=== PATIENT | female | born 1980 | race Caucasian/White ===

== ENCOUNTER 2017-11-17 23:47 | Inpatient (IN) | payer OTHER ==
[~2017-11-17] VITALS: Ht 175.3 cm; Wt 108.0 kg
--- NOTE | ~2017-11-17 | HP ---
PATIENT: AVINASH COLEY MEDICAL RECORD: [id number] ACCOUNT: [id number] LOCATION:[facility] : 81 ADMISSION DATE: 11/18/17 HISTORY AND PHYSICAL EXAMINATION HISTORY OF PRESENT ILLNESS: A 37-year-old female presented to the Emergency Room last night with right upper quadrant abdominal pain, persistent nausea and vomiting, increasing jaundice in her eyes for the past week. Recurrent right upper quadrant abdominal pain. Had an abdominal ultrasound, which showed sludge in the gallbladder, but no acute findings, had been scheduled for an outpatient PIPIDA scan, had not been able to complete this test prior to this presentation. PAST MEDICAL HISTORY: Significant for tonsillectomy. ALLERGIES: REPORTED SHELLFISH. CURRENT MEDICATIONS: Claritin for allergies. REVIEW OF SYSTEMS: GENERAL: Loss of appetite with acute nausea and vomiting. No known change in weight. HEENT: No cephalgia, visual changes, tinnitus, epistaxis, or dysphagia. CARDIOVASCULAR: Denies chest pain. Denies palpitations. PULMONARY: Denies hemoptysis. Denies night sweats. GASTROINTESTINAL: Acute nausea and vomiting as noted above. Mild jaundice reported. GENITOURINARY: Denies dysuria. MUSCULOSKELETAL: No acute changes. ENDOCRINE: Denies polyuria, polydipsia, or polyphagia. PHYSICAL EXAMINATION: VITAL SIGNS: Temp 98.7, blood pressure is 146/67, heart rate 77, respirations 20, O2 sats 99% room air. GENERAL: Alert, oriented, mild distress secondary to epigastric right upper quadrant abdominal pain. HEENT: Normocephalic, atraumatic. Eyes: Pupils are equally round and reactive. Ears: Canals patent. TMs are intact. Nose: Nares patent without drainage. Throat: No erythema, no exudates. NECK: Supple. No lymphadenopathy, no JVD. HEART: Regular rate and rhythm. No S3, S4. No rub. LUNGS: Clear to auscultation bilaterally. Breathing is nonlabored. ABDOMEN: Soft, epigastric right upper quadrant tenderness. Bowel sounds positive. EXTREMITIES: Present times 4. Trace edema. NEUROLOGIC: Intact. SKIN: Warm and dry. No rash. IMAGING: CT of the abdomen and pelvis shows pancreatic stranding consistent with acute pancreatitis, also shows a distended gallbladder. LABORATORY DATA: CBC: White count 10.6, hemoglobin 13.2, hematocrit 40.5, platelets 282. Urinalysis: Dark yellow, hazy, negative ketones, 2+ bilirubin, trace leukocyte esterase. Chemistry shows a sodium of 141, potassium 4.0, chloride 106, bicarbonate 28.8, BUN 12, creatinine 0.9, glucose 150, total HISTORY AND PHYSICAL [id number] BRIJESH,AVINASH bilirubin is 8.0. AST is 147, ALT is 306, alk phos 184. Troponin less than 0.017. Albumin 3.4, amylase 2853, lipase 14,527. ASSESSMENT AND PLAN: Acute pancreatitis, likely caused by a sludge/gallstones, cholelithiasis. The patient is admitted. GI consulted. General surgery, Dr. Deleon consulted. The patient at some point will need cholecystectomy, likely with intraoperative ERCP. IV hydration, pain management, antiemetics, supportive care. We will monitor electrolytes. Placed on electrolyte protocol. 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
--- NOTE | ~2017-11-17 | OP ---
PATIENT NAME: AVINASH COLEY MEDICAL RECORD: [id number] :82 LOCATION:D[facility] ADMISSION DATE:11/18/17 SURGEON: DYAN HALLMAN MD DATE OF OPERATION: 11/20/2017 PREOPERATIVE DIAGNOSES: 1. Gallstone pancreatitis. 2. Elevated liver function tests POSTOPERATIVE DIAGNOSES: 1. Gallstone pancreatitis with secondary acute cholecystitis. 2. Hepatomegaly. 3. Elevated liver function tests. 4. Huge gallbladder. PROCEDURE: 1. Laparoscopic cholecystectomy. 2. Intraoperative cholangiography without immediate surgeon interpretation. 3. A 14-gauge core needle liver biopsies. SURGEON: Dyan Hallman MD GRINDER CHIPPER: None. BLOOD LOSS: Less than 25 cc. ANESTHESIA: General. COMPLICATIONS: None. The risks, possible complications, and alternatives to the procedure were discussed with the patient. She elects to proceed. The discussion specifically included, but was not limited to, bleeding requiring an emergency reoperation, infection, intestinal injury as well as common bile duct injury. OPERATIVE COURSE: The patient was conveyed to the operating room electively on 11/20/2017. General anesthesia was induced by the anesthesia staff. The abdomen was sterilely prepped and draped. A small skin laura was accomplished in the left upper quadrant. A Veress needle was inserted into the peritoneal cavity. CO2 insufflation was begun. Once a sufficient pneumoperitoneum had been achieved, a 5-mm trocar was inserted through an incision in the right upper quadrant. Under direct internal vision utilizing a television camera, a 5-mm trocar was inserted in the left upper quadrant and another 5-mm trocar was inserted through an incision far laterally in the right upper quadrant. Also, a 12-mm trocar was inserted through an incision at the umbilicus. During insertion of the Veress needle and all trocars, there appeared to had been no injury to the bowels, any intraperitoneal or retroperitoneal structures. An abdominal survey was undertaken. Under laparoscopic guidance, I percutaneously accessed the right upper quadrant utilizing a 14-gauge core needle liver biopsy device. Cores were obtained over the convexity of the liver. The biopsy sites were made hemostatic with electrocautery. I then advanced a cholangiogram trocar. I punctured the inflamed gallbladder. I aspirated bile. I then injected dye. Under real time fluoroscopy, an intraoperative cholangiogram was performed. The images are sent to the OPERATIVE REPORT [id number] AVINASH COLEY radiologist for interpretation. I aspirated bile and removed the cholangiogram trocar. The gallbladder was grasped and retracted cephalad. The infundibulum was visualized after taking down adhesions sharply. Blunt dissection was begun in the triangle of Calot. Two cystic arteries and one cystic duct were identified. These were clipped multiply and divided between clips. Due to an enlarged cystic duct, I had to change out the left upper quadrant trocar from a 5-mm trocar to a 12 mm trocar, so that larger clips could be applied. The gallbladder was then excised from its bed in the liver. It was placed within an Endobag retrieval device and was withdrawn through the umbilical fascial defect. A 12-mm trocar was placed and the abdomen reinsufflated. I irrigated and aspirated in the right upper quadrant. There was no bleeding even at low pressure of 8. David was added to the gallbladder fossa for additional hemostasis. Abdomen was desufflated. The Hubert-Galileo suture closure device and 0 Vicryl sutures were used to close the fascia at the umbilicus. All the trocars were removed and the abdomen desufflated. The skin at the umbilicus was closed with interrupted 4-0 Vicryl Rapide sutures. The other skin incisions were closed with interrupted intracuticular 3-0 Vicryls. Benzoin and Steri-Strips were applied. The patient was then extubated and conveyed to the post-anesthesia care unit where she was in stable condition. From my standpoint, she can be dismissed home in the morning on narcotic analgesia. I would like to see her in my office in 2-3 weeks. She can be dismissed home prior to being seen by a surgeon in the morning if she is doing well. 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
[2017-11-18 01:10] LABS: HEMATOCRIT 40.5 % (36.0-48.0); HEMOGLOBIN 13.2 g/dL (12-16); LYMPHOCYTES 6.9 % (15-50); MCH 26.8 pg (26.0-34.0); MCHC 32.6 g/dL (31.0-37.0); MCV 82.2 fL (80.0-100.0); MEAN PLATELET VOLUME 10.8 fL (7.4-10.4); NEUTROPHILS 85.2 % (40-80); PLATELET COUNT 282 10x3/uL (130-400); RBC 4.93 10x6/uL (4.00-5.40); RDW 17.4 % (11.5-14.5); WBC 10.6 10x3/uL (4.8-10.8)
[2017-11-18 01:21] LABS: ALBUMIN 3.4 g/dL (3.4-5.0); ALKALINE PHOSPHATASE 184 U/L (46-116); ALT (SGPT) 306 U/L (10-68); CALC OSMOLALITY 283 mosm/kg (275-300); CARBON DIOXIDE 28.8 mmol/L (21.0-32.0); CHLORIDE - SERUM 106 mmol/L (98-107); CREATININE - SERUM 0.9 mg/dL (0.6-1.3); GLUCOSE 150 mg/dL (74-106); PROTEIN - SERUM 7.7 g/dL (6.4-8.2); SODIUM 141 mmol/L (136-145); UREA NITROGEN 12 mg/dL (7-18); eGFR NON AFRICAN AMERICAN 75 mL/min (90-120)
[2017-11-18 01:24] LABS: HCG URINE NEGATIVE (NEGATIVE)
[2017-11-18 01:28] LABS: TROPONIN-I < 0.017 ng/mL (0.000-0.060)
[2017-11-18 01:35] LABS: AMYLASE - SERUM 2853 U/L (25-115); LIPASE 14527 U/L (73-393)
[2017-11-18 01:44] LABS: APPEARANCE HAZY (CLEAR); COLOR DK YELLOW (YELLOW); NITRITE NEGATIVE (NEGATIVE); PROTEIN NEGATIVE (NEGATIVE); SPECIFIC GRAVITY 1.025 (1.005-1.020)
[2017-11-18 01:45] LABS: BACTERIA FEW /hpf (NONE SEEN); BILIRUBIN 2+ (NEGATIVE); EPITHELIAL CELLS 0-5 /hpf (0-5); GLUCOSE NEGATIVE (NEGATIVE); KETONE NEGATIVE (NEGATIVE); RED CELLS - URINE 0-5 /hpf (0-5); UROBILINOGEN NORMAL (NORMAL); WHITE CELLS - URINE 0-5 /hpf (0-5)
[2017-11-18 09:09] VITALS: BP 146/71
[2017-11-18 17:07] VITALS: BP 139/65
[2017-11-18 20:00] VITALS: BP 140/68
[2017-11-19] VITALS (7 sets, daily range): BP systolic 104–153; BP diastolic 61–79; Ht 175.3 cm; Wt 108.0 kg
[2017-11-19 04:31] LABS: BASOPHILS 0.1 % (0-2); EOSINOPHILS 2.1 % (0-7); HEMATOCRIT 36.2 % (36.0-48.0); HEMOGLOBIN 11.8 g/dL (12-16); IMMATURE GRANULOCYTES 0.3 % (0-5); LYMPHOCYTES 9.9 % (15-50); MCH 26.9 pg (26.0-34.0); MCHC 32.6 g/dL (31.0-37.0); MCV 82.5 fL (80.0-100.0); MONOCYTES 8.1 % (2-11); NEUTROPHILS 79.5 % (40-80); PLATELET COUNT 276 10x3/uL (130-400); RBC 4.39 10x6/uL (4.00-5.40); RDW 16.8 % (11.5-14.5)
[2017-11-19 04:40] LABS: WBC 13.7 10x3/uL (4.8-10.8)
[2017-11-19 04:53] LABS: ALKALINE PHOSPHATASE 155 U/L (46-116); CARBON DIOXIDE 29.3 mmol/L (21.0-32.0); CHLORIDE - SERUM 104 mmol/L (98-107); CREATININE - SERUM 0.7 mg/dL (0.6-1.3); GLUCOSE 117 mg/dL (74-106); PHOSPHOROUS 3.1 mg/dL (2.5-4.9); POTASSIUM - SERUM 3.5 mmol/L (3.5-5.1); PROTEIN - SERUM 6.2 g/dL (6.4-8.2); SODIUM 140 mmol/L (136-145); eGFR NON AFRICAN AMERICAN > 90 mL/min (90-120)
[2017-11-19 04:55] LABS: ALBUMIN 2.5 g/dL (3.4-5.0); ALT (SGPT) 186 U/L (10-68); AMYLASE - SERUM 503 U/L (25-115); CALC OSMOLALITY 277 mosm/kg (275-300); LIPASE 2271 U/L (73-393); UREA NITROGEN 7 mg/dL (7-18)
[2017-11-20] VITALS: BP 148/68
[2017-11-20 04:00] VITALS: BP 146/71
[2017-11-20 04:07] LABS: BASOPHILS 0.2 % (0-2); EOSINOPHILS 3.8 % (0-7); HEMATOCRIT 33.3 % (36.0-48.0); HEMOGLOBIN 10.8 g/dL (12-16); IMMATURE GRANULOCYTES 0.1 % (0-5); LYMPHOCYTES 8.3 % (15-50); MCH 26.7 pg (26.0-34.0); MCHC 32.4 g/dL (31.0-37.0); MCV 82.4 fL (80.0-100.0); MEAN PLATELET VOLUME 10.8 fL (7.4-10.4); MONOCYTES 11.8 % (2-11); NEUTROPHILS 75.8 % (40-80); PLATELET COUNT 256 10x3/uL (130-400); RBC 4.04 10x6/uL (4.00-5.40); RDW 16.9 % (11.5-14.5); WBC 14.7 10x3/uL (4.8-10.8)
[2017-11-20 04:26] LABS: ALBUMIN 2.1 g/dL (3.4-5.0); ALKALINE PHOSPHATASE 129 U/L (46-116); CALCIUM 7.8 mg/dL (8.5-10.1); CARBON DIOXIDE 30.1 mmol/L (21.0-32.0); CHLORIDE - SERUM 103 mmol/L (98-107); CREATININE - SERUM 0.6 mg/dL (0.6-1.3); GLUCOSE 119 mg/dL (74-106); LIPASE 326 U/L (73-393); POTASSIUM - SERUM 3.7 mmol/L (3.5-5.1); PROTEIN - SERUM 5.7 g/dL (6.4-8.2); SODIUM 138 mmol/L (136-145); eGFR NON AFRICAN AMERICAN > 90 mL/min (90-120)
[2017-11-20 04:35] LABS: AMYLASE - SERUM 115 U/L (25-115)
[2017-11-20 04:36] LABS: ALT (SGPT) 113 U/L (10-68); CALC OSMOLALITY 273 mosm/kg (275-300); PHOSPHOROUS 2.2 mg/dL (2.5-4.9); UREA NITROGEN 5 mg/dL (7-18)
[2017-11-20 08:10] VITALS: BP 125/59
[2017-11-20 12:12] VITALS: BP 145/51
[2017-11-20 15:33] VITALS: BP 126/53
[2017-11-20 21:05] VITALS: BP 144/58
[2017-11-21 00:07] VITALS: BP 159/92
[2017-11-21 04:32] VITALS: BP 157/80
[2017-11-21 06:35] LABS: BASOPHILS 0 % (0-2); EOSINOPHILS 0 % (0-7); HEMATOCRIT 33.2 % (36.0-48.0); HEMOGLOBIN 10.8 g/dL (12-16); IMMATURE GRANULOCYTES 0.2 % (0-5); MCHC 32.5 g/dL (31.0-37.0); MEAN PLATELET VOLUME 11.3 fL (7.4-10.4); NEUTROPHILS 90.8 % (40-80); PLATELET COUNT 277 10x3/uL (130-400); RDW 16.9 % (11.5-14.5); WBC 11.5 10x3/uL (4.8-10.8)
[2017-11-21 07:01] LABS: ALKALINE PHOSPHATASE 122 U/L (46-116); ALT (SGPT) 101 U/L (10-68); BILIRUBIN - TOTAL 4.69 mg/dL (0.2-1.3); CALC OSMOLALITY 279 mosm/kg (275-300); CALCIUM 8.2 mg/dL (8.5-10.1); CARBON DIOXIDE 29.5 mmol/L (21.0-32.0); CHLORIDE - SERUM 105 mmol/L (98-107); CREATININE - SERUM 0.7 mg/dL (0.6-1.3); GLUCOSE 191 mg/dL (74-106); MAGNESIUM - SERUM 1.7 mg/dL (1.8-2.4); PHOSPHOROUS 2.2 mg/dL (2.5-4.9); POTASSIUM - SERUM 3.9 mmol/L (3.5-5.1); PROTEIN - SERUM 5.9 g/dL (6.4-8.2); SODIUM 139 mmol/L (136-145); UREA NITROGEN 5 mg/dL (7-18); eGFR NON AFRICAN AMERICAN > 90 mL/min (90-120)
[2017-11-21 07:48] VITALS: BP 125/67
[2017-11-21] MEDS ORDERED: HYDROCODON-ACE1 EAC7 PO (10:43)
== END 2017-11-21 11:28 | disposition home or self-care (01) | DRG 417 ==
LOC: D.ER 23:47 → D.MS 11-18 04:06
PROVIDERS: Family Medicine; Internal Medicine Gastroenterology
PROC: 0FC98ZZ Extirpation of Matter from Common Bile Duct, Via Natural or Artificial Opening Endoscopic (ICD-10-PCS; principal; 2017-11-18 15:00)
PROC: 0FT44ZZ Resection of Gallbladder, Percutaneous Endoscopic Approach (ICD-10-PCS; 2017-11-20)
PROC: BF121ZZ Fluoroscopy of Gallbladder using Low Osmolar Contrast (ICD-10-PCS; 2017-11-20)
PROC: 0FB03ZX Excision of Liver, Percutaneous Approach, Diagnostic (ICD-10-PCS; 2017-11-20)
DX: K80.62 Calculus of gallbladder and bile duct with acute cholecystitis without obstruction (principal); K85.10 Biliary acute pancreatitis without necrosis or infection; R17 Unspecified jaundice